=== PATIENT | male | born 1930 | race Caucasian/White ===

== ENCOUNTER → 2019-10-25 | Outpatient (CLI) | payer OTHER ==
--- NOTE | 2019-10-25 15:43 | RADIOLOGY REPORT (SQ) ---
EXAM DESCRIPTION: CT SOFT TISSUE NECK WITH IMAGES COMPLETED DATE/TIME: 10/25/2019 2:53 pm REASON FOR STUDY: R07.0 PAIN IN THROAT R22.1 LOCALIZED SWELLING, MASS AND LUMP, NECK R07.0 PAIN IN THROAT COMPARISON: None. TECHNIQUE: Post IV contrasted scanning from skull base through lung apices with review of bone, soft tissue and lung windows. Reconstructed coronal and sagittal MPR images reviewed. All images stored on PACS. All CT scanners at this facility use dose modulation, iterative reconstruction, and/or weight based d osing when appropriate to reduce radiation dose to as low as reasonably achievable (ALARA). [facility]: Dose Right [facility]: CareDose [facility]: Dose Right [facility]: Teradose 4D [facility]: Gateway 3D CONTRAST TYPE AND DOSE: 75mL Omnipaque 350- low osmolar. RENAL FUNCTION: Creatinine 1.4 RADIATION DOSE: mGy. LIMITATIONS: None. FINDINGS: SKULL BASE: Intact. MAJOR SALIVARY GLANDS: No solid or cystic masses. No inflammatory changes. LYMPHADENOPATHY: No adenopathy. MUCOSAL MASSES OR ASYMMETRY: Mild mucosal asymmetry within the right vallecula without discrete enhan cing lesion. Small (4 mm) right vallecula cystic lesion (series 2, image 56. LARYNX/CORDS: No abnormal findings. VASCULAR STRUCTURES: Scattered atherosclerosis with moderate bilateral ICA narrowing secondary to farrah cified plaque. Left vertebral origin is not well visualized. Remaining vertebral arteries are opaci fied. LUNG APICES: Severe upper lobe panacinar arm paraseptal emphysema with biapical consolidation and sca rring. Shotty mediastinal nodes without discrete adenopathy coronary atherosclerosis. BONES: No acute bony abnormality. Multilevel degenerative changes of the cervical spine with disc sp lisa loss throughout, greatest at C3-4 and C6-7. Multilevel facet arthropathy. No acute findings. THYROID: Normal size. No masses. PARANASAL SINUSES: Dysmorphic right maxillary sinus likely related to remote trauma. Mild mucosal th ickening within the ethmoid air cells and right maxillary sinus. Remaining sinuses and mastoid air c ells are clear. OTHER: No other significant finding. IMPRESSION: 1. No definite enhancing mucosal lesion. Mild mucosal asymmetry within the right hernández cula with a 4 mm vallecular cyst. Endoscopy could be considered for further evaluation of possible m ucosal lesion. No discrete lymphadenopathy. 2. Severe emphysema with biapical pleuroparenchymal changes, likely scarring. 6 to 12 month dedicat ed follow-up chest CT should be considered to ensure stability. 3. 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 4. No additional acute findings in the neck. Chronic findings as above. TECHNICAL DOCUMENTATION: JOB ID: [id number] [facility] [id number]: Final reports with documentation of one or more dose reduction techniques (e.g., Automate d exposure control, adjustment of the mA and/or kV according to patient size, use of iterative recons truction technique) 2010 [employer]- All Rights Reserved Reading location - IP/workstation name: [email or web address]
== END ==
LOC: RAD 14:06
PROVIDERS: ATTEND Otolaryngology
DX: R22.1 Localized swelling, mass and lump, neck (principal); J43.9 Emphysema, unspecified; M50.323 Other cervical disc degeneration at C6-C7 level; I65.23 Occlusion and stenosis of bilateral carotid arteries
CPT/HCPCS: 70491; 82565